=== PATIENT | female | born 1965 | race Caucasian/White ===

== ENCOUNTER 2016-03-20 08:00 | Day surgery (SDC) | payer OTHER ==
[~2016-03-20] VITALS: Ht 162.6 cm; Wt 106.5 kg
[~2016-03-20 08:00] MED LIST: FLEXERIL10 MG PO; NAPROSYN500 MG PO
[2016-03-20 08:20] VITALS: BP 156/101
[2016-03-20] MEDS ORDERED: ENDOCET 5-3251 EACH PO (10:58)
[2016-03-20] MEDS ORDERED: IBUPROFEN800 MG PO (10:58)
[2016-03-20 12:40] VITALS: BP 143/85
[2016-03-20 13:41] VITALS: BP 152/81
[2016-03-20 14:51] VITALS: BP 154/84
== END 2016-03-20 15:45 | disposition home or self-care (01) ==
LOC: SDC 08:00
DX: N92.0 Excessive and frequent menstruation with regular cycle (principal); N94.6 Dysmenorrhea, unspecified; N72 Inflammatory disease of cervix uteri; N85.02 Endometrial intraepithelial neoplasia [EIN]; D25.1 Intramural leiomyoma of uterus; Z88.2 Allergy status to sulfonamides; Z80.3 Family history of malignant neoplasm of breast; Z82.49 Family history of ischemic heart disease and other diseases of the circulatory system
CPT/HCPCS: 88307; J0330; J0690; J1100; J1170; J1885; J2405; J2710; J3010